=== PATIENT | female | born 2005 | race Caucasian/White ===

== ENCOUNTER 2024-04-14 23:53 | Emergency (ER) | payer BC ==
[2024-04-15] MEDS ORDERED: CROTALIDAE ANTIVENIM 1 GM VIAL IV ONE (00:29)
[2024-04-15] MEDS ORDERED: NA CHLORIDE 0.9% 250 ML ONE (00:29)
[2024-04-15] MEDS ORDERED: TDAP (DIPHTH,PERTUSS(ACELL),TET VAC) 0.5 ML VIAL IMVAC ONE (00:30)
[2024-04-15 00:54] LABS: Absolute Lymphocytes (CBC) 1.2 K/uL (0.7-4.9); Absolute Monocytes 0.5 K/uL (0.1-1.3); Basophils % 0.3 % (0-1.3); Eosinophils % 0.6 % (0-4.4); Hematocrit 38.5 % (36.0-45.0); Hemoglobin 12.8 g/dL (12.0-15.0); Lymphocytes % 17.6 % (15.3-44.8); MCH 30.4 pg (27.0-35.0); MCHC 33.2 g/dL (32.0-36.0); MCV 91.7 fL (80-100); MPV 7.5 fL (7.6-11.3); Monocytes % 7.1 % (3.3-12.3); Neutrophils % 74.4 % (41.7-73.7); Nucleated Red Blood Cells % 0.1 % (0-0); Platelets 275 thou/uL (152-406); Red Cell Distribution Width 12.8 % (12.1-15.2)
[2024-04-15 00:57] LABS: Anion Gap 6.8 mEq/L (5.0-15.0); Potassium 3.8 mEq/L (3.5-5.1)
[2024-04-15] MEDS ORDERED: ONDANSETRON 4 MG/2 ML VIAL ONE (01:07)
--- NOTE | 2024-04-15 01:22 | EDPHYS ---
Physician Documentation [facility] Name: Piotr Rubi Age: 19 yrs Sex: Female : 2005 Arrival Date: 04/14/2024 Time: 23:53 Bed 20 Private MD: ED Physician Mani Medina HPI: 04/15 00:15 This 19 yrs old Female presents to ER via Ambulatory with complaints of Snake ec2 bite. 00:15 Patient arrives today for evaluation after snakebite. Patient reports that she was ec2 bitten by a snake approximately 1.5 hours ago. Patient reports that she was bitten on the right thumb. Patient reports that she was attempting to move out of the side of the road. Patient reports that she had since progressed to significant swelling of the hand now going up to the mid forearm. Unsure of tetanus status.. Historical: - Allergies: 00:02 No Known Allergies; tl4 - Home Meds: 00:02 fluoxetine 40 mg Oral capsule daily [Active]; tl4 - PMHx: 00:02 Anxiety; tl4 - PSHx: 00:02 None; tl4 - Immunization history:: Adult Immunizations unknown. - Infectious Disease History:: Denies. - Social history:: Smoking status: Patient denies any tobacco usage or history of. ROS: 00:15 Constitutional: as per hpi ec2 Exam: 00:15 Constitutional: GEN: NAD Head: atraumatic Eyes: EOMI Ears: External ears are ec2 normal. CV: regular rate LUNGS: no respiratory distress ABD: non-distended SKIN: Small puncture wounds noted on the inner portion of the right thumb, surrounding significant edema extending from the mid forearm distally MSK: no evidence of trauma NEURO: moves all extremities equally Vital Signs: 00:00 BP 128 / 76; Pulse 61; Resp 16; Temp 98.2(O); Pulse Ox 99% on R/A; Weight 56.7 kg; tl4 Height 5 ft. 5 in. ; Pain 0/10; 01:00 BP 110 / 75; Pulse 74; Resp 17; Pulse Ox 98% ; jj7 02:00 BP 102 / 65; Pulse 71; Resp 24; Pulse Ox 98% ; jj7 00:00 Body Mass Index 20.80 (56.70 kg, 165.1 cm) tl4 00:00 Pain Scale: Adult tl4 MDM: 00:02 Patient medically screened. ec2 00:15 Data reviewed: vital signs. ED course: Patient arrives today for evaluation of a ec2 snakebite. Examination remarkable for skin findings as above. Given the significant swelling my concern is for possible envenomation. Will obtain lab work, empirically treat with CroFab. Will require transfer for continued monitoring.. 00:38 ED course: On reexamination patient with approximately 2 cm of extension of edema on ec2 the forearm.. 02:28 ED course: On reassessment patient with some extension to just distally to the elbow. I ec2 discussed case with Dr. Diana, surgery at [facility] who agrees to accept the patient for transfer.. 04/15 00:12 Order name: Basic Metabolic Panel; Complete Time: 00:58 ec2 04/15 00:12 Order name: CBC with Diff; Complete Time: 01:20 ec2 04/15 00:12 Order name: PT-INR; Complete Time: 49 ec2 04/15 00:12 Order name: Ptt, Activated; Complete Time: ec2 04/15 00:12 Order name: Fibrinogen; Complete Time: :49 ec2 04/15 00:12 Order name: Cardiac monitoring; Complete Time: 00: ec2 04/15 00:12 Order name: IV Saline Lock; Complete Time: : ec2 04/15 00:12 Order name: Labs collected and sent; Complete Time: : ec2 04/15 00:12 Order name: O2 Per Protocol; Complete Time: ec2 04/15 00:12 Order name: O2 Sat Monitoring; Complete Time: 00: ec2 Administered Medications: 00:38 Drug: Boostrix Tdap IM 0.5 ml IM once; as a single dose Route: IM; Site: left deltoid; jj7 02:59 Follow up: Response: No adverse reaction jj7 01:07 Drug: CroFab IV 6 vials IV at calculated rate once; may repeat at >=1 hour intervals jj7 until initial control of symptoms Route: IV; Rate: calculated rate; Site: left antecubital; 02:59 Follow up: IV Status: Infusion continued upon transfer jj7 01:17 Drug: Ondansetron IVP 4 mg IVP once; over 2 minutes Route: IVP; Site: left antecubital; jj7 02:59 Follow up: Response: Marked relief of symptoms jj7 02:07 Drug: morphine IVP or IV 4 mg IVP once over 4 mins Route: IVP; Infused Over: 4 mins; jj7 Site: left antecubital; 02:59 Follow up: Response: Marked relief of symptoms; Pain is decreased jj7 Disposition Summary: 04/15/24 01:22 Transfer Ordered Notes: Reason: Higher level of care ec2 Condition: Fair ec2 Problem: new ec2 Symptoms: have worsened ec2 Transfer Location: [facility](04/15/24 02:29) ec2 Accepting Physician: Dr. Diana(04/15/24 02:59) jj7 Diagnosis - Toxic effect of snake venom ec2 Forms: - Medication Reconciliation Form ec2 - SBAR form ec2 Critical care time excluding procedures: 01:21 Critical care time: Bedside Care: 30 minutes, Consultation: 5 minutes. Total time: 35 ec2 minutes Signatures: Dispatcher [employer] Poly Ferrer RN RN jj7 Mani Medina MD MD ec2 Gregg Riggs RN RN tl4 Corrections: (The following items were deleted from the chart) 02: 01:22 transferring doc ec2 ec2 02: 01:22 Other Acute Care Facility ec2 ec2 02:59 02:29 Dr. Diana ec2 jj7
--- NOTE | 2024-04-15 01:22 | ER ---
Nurse's Notes [facility] Name: Piotr Rubi Age: 19 yrs Sex: Female : 2005 Arrival Date: 04/14/2024 Time: 23:53 Bed 20 Private MD: Diagnosis: Toxic effect of snake venom Presentation: 04/15 00:00 Chief complaint: Patient states: Pt states she was bit by an unknown type snake on her tl4 right thumb at approx 2250 tonight. Hand and thumb are noticeably swollen. Coronavirus screen: At this time, the client does not indicate any symptoms associated with coronavirus-19. Ebola Screen: No symptoms or risks identified at this time. Initial Sepsis Screen: Does the patient meet any 2 criteria? No. Patient's initial sepsis screen is negative. Does the patient have a suspected source of infection? No. Patient's initial sepsis screen is negative. Risk Assessment: Do you want to hurt yourself or someone else? Patient reports no desire to harm self or others. Onset of symptoms was April 14, 2024 at 22:50. 00:00 Method Of Arrival: Ambulatory tl4 00:00 Acuity: [place] 3 tl4 Triage Assessment: 00:03 Bite description: bite sustained to right hand by a snake, animal information: tl4 vaccination(s) is not applicable. General: Appears in no apparent distress. Behavior is calm, cooperative. Pain: Denies pain. EENT: No signs and/or symptoms were reported regarding the EENT system. Neuro: Level of Consciousness is awake, alert, obeys commands, Oriented to person, place, time, situation. Cardiovascular: Capillary refill < 3 seconds Patient's skin is warm and dry. Respiratory: Airway is patent Respiratory effort is even, unlabored, Respiratory pattern is regular, symmetrical. GI: No signs and/or symptoms were reported involving the gastrointestinal system. : No signs and/or symptoms were reported regarding the genitourinary system. Derm: Wound noted palmar aspect of distal phalanx of right thumb and palmar aspect of proximal phalanx of right thumb Wound is snake bite. Musculoskeletal: Swelling present in right hand. Historical: - Allergies: 00:02 No Known Allergies; tl4 - Home Meds: 00:02 fluoxetine 40 mg Oral capsule daily [Active]; tl4 - PMHx: 00:02 Anxiety; tl4 - PSHx: 00:02 None; tl4 - Immunization history:: Adult Immunizations unknown. - Infectious Disease History:: Denies. - Social history:: Smoking status: Patient denies any tobacco usage or history of. Screenin:00 [facility] ED Fall Risk Assessment (Adult) History of falling in the last 3 months, jj7 including since admission No falls in past 3 months (0 pts) Confusion or Disorientation No (0 pts) Intoxicated or Sedated No (0 pts) Impaired Gait No (0 pts) Mobility Assist Device Used No (0 pt) Altered Elimination No (0 pt) Score/Fall Risk Level 0 - 2 = Low Risk Oriented to surroundings, Maintained a safe environment, Educated pt \T\ family on fall prevention, incl call for assistance when getting out of bed, Assessed \T\ reinforced patient's understanding of fall precautions. Abuse screen: Denies threats or abuse. Nutritional screening: No deficits noted. Tuberculosis screening: No symptoms or risk factors identified. Assessment: 00:00 General: Appears in no apparent distress. comfortable, Behavior is calm, cooperative, jj7 appropriate for age. Pain: Complains of pain in dorsal aspect of distal phalanx of right thumb, dorsal aspect of proximal phalanx of right thumb, palmar aspect of distal phalanx of right thumb and palmar aspect of proximal phalanx of right thumb. Derm: Skin PUNCTURE WOUNDS Skin is Skin is BLUISH PURPLE Wound noted dorsal aspect of proximal phalanx of right thumb and palmar aspect of proximal phalanx of right thumb Wound is SNAKE BITE PUNCTURE WOUNDS. SWOLLEN AND DISCOLORED Bruising that is dark purple, on dorsal aspect of proximal phalanx of right thumb and palmar aspect of proximal phalanx of right thumb RIGHT HAND SWELLING. 02:00 GI: Reports lower abdominal pain, upper abdominal pain, cramping. jj7 02:22 Reassessment: REPORT GIVEN TO CELSA WOODVIAL GAUGER NURSE. jj7 Vital Signs: 00:00 BP 128 / 76; Pulse 61; Resp 16; Temp 98.2(O); Pulse Ox 99% on R/A; Weight 56.7 kg; tl4 Height 5 ft. 5 in. ; Pain 0/10; 01:00 BP 110 / 75; Pulse 74; Resp 17; Pulse Ox 98% ; jj7 02:00 BP 102 / 65; Pulse 71; Resp 24; Pulse Ox 98% ; jj7 00:00 Body Mass Index 20.80 (56.70 kg, 165.1 cm) tl4 00:00 Pain Scale: Adult tl4 ED Course: 04/14 23:55 Patient arrived in ED. tl4 04/15 00:00 Patient has correct armband on for positive identification. Placed in gown. Bed in low jj7 position. Call light in reach. Provided Education on: USE OF CALL FRIED. Client placed on continuous cardiac and pulse oximetry monitoring. NIBP monitoring applied. field horticultural specialty grower on. Pulse ox on. 00:02 Mani Medina MD is Attending Physician. ec2 00:02 Triage completed. tl4 00:05 Arm band placed on left wrist. tl4 00:17 Poly Echeverria RN is Primary Nurse. jj7 00:22 Inserted saline lock: 18 gauge in left antecubital area, using aseptic technique. Blood jj7 collected. Flushed with 10 mL NS. 00:22 Initial lab(s) drawn, by nv, sent to lab. jj7 00:27 Basic Metabolic Panel Sent. jj7 00:28 CBC with Diff Sent. jj7 00:28 Ptt, Activated Sent. jj7 00:28 PT-INR Sent. jj7 00:38 Fibrinogen Sent. jj7 01:58 Initiated transfer with Queenie at [facility]. rv1 02:[address] Diana to [facility]. rv1 02:21 Cara with Andrei gave 15-20 min ETA. rv1 02:51 No provider procedures requiring assistance completed. Patient transferred, IV remains jj7 in place. Administered Medications: 00:38 Drug: Boostrix Tdap IM 0.5 ml IM once; as a single dose Route: IM; Site: left deltoid; jj7 02:59 Follow up: Response: No adverse reaction jj7 01:07 Drug: CroFab IV 6 vials IV at calculated rate once; may repeat at >=1 hour intervals jj7 until initial control of symptoms Route: IV; Rate: calculated rate; Site: left antecubital; 02:59 Follow up: IV Status: Infusion continued upon transfer jj7 01:17 Drug: Ondansetron IVP 4 mg IVP once; over 2 minutes Route: IVP; Site: left antecubital; jj7 02:59 Follow up: Response: Marked relief of symptoms jj7 02:07 Drug: morphine IVP or IV 4 mg IVP once over 4 mins Route: IVP; Infused Over: 4 mins; jj7 Site: left antecubital; 02:59 Follow up: Response: Marked relief of symptoms; Pain is decreased jj7 Medication: 00:00 VIS not applicable for this client. jj7 Outcome: 01:22 ER care complete, transfer ordered by . ec2 02:51 Transferred by [facility] to [facility], jj7 Transfer form completed. X-rays sent w/ patient. 02:51 Condition: stable 02:51 Patient left the ED. jj7 Signatures: Poly Echeverria RN RN jj7 Maki Guzman rv1 Mani Medina MD MD ec2 Gregg Riggs RN RN tl4 Corrections: (The following items were deleted from the chart) 03:00 02:59 Patient left the ED. jj7 jj7
[2024-04-15 01:41] LABS: PT Prothrombin Time 12.2 SECONDS (9.4-12.5); PTT, Activated Partial Thromb 31.7 SECONDS (24.3-36.9); Protime INR 1.09
[2024-04-15] MEDS ORDERED: MORPHINE 4 MG/ML SYR ONE (01:59)
[2024-04-15 03:07] VITALS: TEMP 98.2
[2024-04-15 03:13] VITALS: O2SAT 98
[2024-04-15 03:19] VITALS: BP 102/65
== END 2024-04-15 02:59 | disposition short-term general hospital (02) ==
LOC: ER 23:53
DX: T63.001A Toxic effect of unspecified snake venom, accidental (unintentional), initial encounter (principal); S61.031A Puncture wound without foreign body of right thumb without damage to nail, initial encounter
CPT/HCPCS: 96365; 85025; 80048; 36415; 85384; 85610; 85730; 96375; 96372; 99285; 96366; J0840; J2405; J7050